=== PATIENT | male | born 1950 | race Caucasian/White ===

== ENCOUNTER 2021-11-23 17:35 | Emergency (ER) | payer MEDICARE, BC ==
[~2021-11-23] VITALS: Ht 167.6 cm; Wt 79.4 kg
[2021-11-23] MEDS ORDERED: ROSUVASTATIN CA20 MG PO (20:04)
[2021-11-23] MEDS ORDERED: ARMOUR THYROID60 MG PO (20:04)
[2021-11-23] MEDS ORDERED: ASPIRIN81 MG PO (20:05)
[2021-11-23] MEDS ORDERED: METOPROLOL SUCC25 MG PO (20:05)
[2021-11-23] MEDS ORDERED: CLOPIDOGREL75 MG PO (20:05)
== END 2021-11-23 20:40 | disposition home or self-care (01) ==
LOC: ED 17:35
DX: K03.1 Abrasion of teeth (principal); E78.00 Pure hypercholesterolemia, unspecified; Z79.899 Other long term (current) drug therapy; Z79.82 Long term (current) use of aspirin
CPT/HCPCS: 99282